=== PATIENT | male | born 1955 | race Caucasian/White ===

== ENCOUNTER 2020-06-14 15:20 | Outpatient (CLI) | payer MEDICARE, SELFPAY ==
--- NOTE | ~2020-06-14 | MR_ITS ---
. EXAMINATION: MR shoulder LT wo con DATE: 06/14/2020 16:27 INDICATION: Left shoulder pain. Weakness. TECHNIQUE: Magnetic resonance imaging (MRI) of the left shoulder was performed without intravenous co ntrast. Sequences included axial PD-weighted FS FSE, coronal oblique PD-weighted FS FSE and T2-weight ed FS FSE, and sagittal oblique T2-weighted FS FSE and T1-weighted FSE. COMPARISON: None. FINDINGS: Motion artifact is noted. Coracoacromial arch: The acromion undersurface is curved in morphology (type II). There is moderate acromioclavicular join t osteoarthritis including inferiorly directed osteophytes. There is mild subacromial/subdeltoid burs itis. Rotator cuff: There is moderate supraspinatus and infraspinatus tendinopathy. There is an articular sided partial-t hickness tear of supraspinatus tendon measuring 13 mm anterior to posterior by 16 mm proximal to dist al by 40% tendon thickness. Teres minor tendon is normal. There is mild subscapularis tendinopathy. T here is no asymmetric fatty atrophy of the rotator cuff muscle bellies. Biceps tendon and glenoid labrum: Biceps tendon is in bicipital groove. There is mild intra-articular biceps tendinopathy. There is a d egenerative tear of superior labrum from 11:00 to 12:00 (SLAP tear). Fluid: There is no glenohumeral joint effusion. Bones/cartilage: Glenoid cartilage and humeral head cartilage are normal, but motion artifact decreases sensitivity. IMPRESSION: 1. Moderate rotator cuff tendinopathy with articular-sided, partial-thickness tear of supraspinatus t endon. 2. Degenerative SLAP tear. 3. Moderate acromioclavicular joint osteoarthritis. 4. Mild subacromial/subdeltoid bursitis. 5. Mild intra-articular biceps tendinopathy. Reviewed, dictated and finalized at location A. IMPRESSION: 1. Moderate rotator cuff tendinopathy with articular-sided, partial-thickness t ear of supraspinatus tendon. 2. Degenerative SLAP tear. 3. Moderate acromioclavicular joint osteoarthritis. 4. Mild subacromial/subdeltoid bursitis. 5. Mild intra-articular biceps tendinopathy.
== END 2020-06-14 15:21 | disposition home or self-care (01) ==
PROVIDERS: PCP Orthopaedic Surgery; Visit Provider Orthopaedic Surgery
DX: M19.012 Primary osteoarthritis, left shoulder (principal); M75.52 Bursitis of left shoulder
CPT/HCPCS: 73221

== ENCOUNTER 2020-07-19 07:08 | Outpatient (CLI) | payer MEDICARE, SELFPAY ==
[2020-07-19 08:48] LABS: Alveolar/Arterial O2 Gradient 22.3 mmHg; Base Excess ABG 2.8 mEq/l (+/-2.0); Carboxyhemoglobin 3.6 % THb (0-2.0); Device NASAL CANNULA; Fractional Inspired Oxygen 21 %; HCO3 ABG 30.7 mEq/l (22.0-26.0); Methemoglobin ABG 0.3 %THb (0-1.5); Modified Allen's Test Pass; Oxygen Content ABG 23.8 %vol (16.0-22.0); Oxyhemoglobin 86.7 % THb (90.0-100.0); PCO2 ABG 58.1 mmHg (35.0-45.0); PO2 ABG 57.9 mmHg (80.0-100.0); PO2 FiO2 Ratio Arterial Blood 2.76 %; Reduced Hemoglobin 9.4 %THb (0-5.0); Total Hemoglobin 19.6 g/dL (12.0-18.0); pH ABG 7.341 (7.350-7.450)
== END 2020-07-19 07:09 | disposition home or self-care (01) ==
PROVIDERS: PCP Internal Medicine; Visit Provider Internal Medicine
DX: D45 Polycythemia vera (principal)
CPT/HCPCS: 36600; 82375; 82805; 83050